=== PATIENT | male | born 1985 | race African-American/Black ===

== ENCOUNTER 2020-09-05 08:30 | Emergency (ER) | payer MEDICAID ==
[~2020-09-05] VITALS: Ht 182.9 cm; Wt 74.8 kg
--- NOTE | 2020-09-05 08:58 | Emergency Room Report ---
History of Present Illness General Chief Complaint: General Complaint Source: Patient Present Illness HPI 35-year-old male here with generalized weakness after starting a new medication. Patient was taking Biktarvy for HIV and has recently begun a clinical trial in which he is receiving injections of "some medication that starts with an R." Patient does not know the name of the medication. Has received several doses of medication and started this treatment 2 weeks ago. Patient denies headaches, vision changes, skin changes, rash, chest pain, palpitation, shortness of breath, back pain, abdominal pain, nausea, vomiting, dysuria. Has had some mild diarrhea. Allergies: Coded Allergies: No Known Allergies (Unverified , 09/05/20) COVID-19 Screening Contact w/high risk pt: No Experienced COVID-19 symptoms?: No COVID-19 Testing performed [employer]ER: No Review of Systems All Other Systems: negative except mentioned in HPI Physical Exam Vital Signs Date Time Temp Pulse Resp B/P (MAP) Pulse Ox O2 Delivery O2 Flow Rate FiO2 09/05/20 08:46 98.1 78 16 160/80 (106) 98 Room Air Sp02 EP Interpretation: reviewed, normal General Appearance: no apparent distress, alert, non-toxic Head: normocephalic, atraumatic Eyes: bilateral eye normal inspection, bilateral eye PERRL ENT: hearing grossly normal, normal pharynx, no angioedema, normal voice Neck: full range of motion, supple/symm/no masses Respiratory: chest non-tender, lungs clear, normal breath sounds, speaking full sentences Cardiovascular #1: regular rate, rhythm, no edema Cardiovascular #2: 2+ carotid (R), 2+ carotid (L), 2+ radial (R), 2+ radial (L), 2+ dorsalis pedis (R), 2+ dorsalis pedis (L) Gastrointestinal: normal bowel sounds, non tender, soft, non-distended, no guarding, no rebound Rectal: deferred Genitourinary: normal inspection, no CVA tenderness Musculoskeletal: back normal, normal range of motion, gait/station normal, non- tender Neurologic: alert, motor strength/tone normal, oriented x3, sensory intact, responsive, speech normal Psychiatric: judgement/insight normal, memory normal, mood/affect normal, no suicidal/homicidal ideation Lymphatic: no adenopathy Medical Decision Making Diagnostic Impression: Primary Impression: Encounter for generalized patient complaints Additional Impression: Elevated bilirubin ER Course Laboratory Tests Test 09/05/20 08:58 White Blood Count 4.1 K/UL (4.8-10.8) L Red Blood Count 5.04 M/UL (4.70-6.10) Hemoglobin 14.0 G/DL (14.2-18.0) L Hematocrit 42.7 % (42.0-52.0) Mean Corpuscular Volume 85 FL (80-99) Mean Corpuscular Hemoglobin 27.8 PG (27.0-31.0) Mean Corpuscular Hemoglobin Concent 32.8 G/DL (32.0-36.0) Red Cell Distribution Width 12.6 % (11.6-14.8) Platelet Count 252 K/UL (150-450) Mean Platelet Volume 7.1 FL (6.5-10.1) Neutrophils (%) (Auto) 43.5 % (45.0-75.0) L Lymphocytes (%) (Auto) 40.0 % (20.0-45.0) Monocytes (%) (Auto) 13.9 % (1.0-10.0) H Eosinophils (%) (Auto) 0.8 % (0.0-3.0) Basophils (%) (Auto) 1.8 % (0.0-2.0) Sodium Level 139 MMOL/L (136-145) Potassium Level 4.1 MMOL/L (3.5-5.1) Chloride Level 101 MMOL/L (98-107) Carbon Dioxide Level 27 MMOL/L (21-32) Anion Gap 11 mmol/L (5-15) Blood Urea Nitrogen 11 mg/dL (7-18) Creatinine 1.3 MG/DL (0.55-1.30) Estimated Glomerular Filtration Rate > 60 mL/min (>60) Glucose Level 106 MG/DL (74-106) Calcium Level 9.3 MG/DL (8.5-10.1) Total Bilirubin 2.4 MG/DL (0.2-1.0) H Direct Bilirubin 0.4 MG/DL (0.0-0.3) H Aspartate Amino Transferase (AST) 115 U/L (15-37) H Alanine Aminotransferase (ALT) 48 U/L (12-78) Alkaline Phosphatase 46 U/L (46-116) Total Protein 8.1 G/DL (6.4-8.2) Albumin 4.7 G/DL (3.4-5.0) Globulin 3.4 g/dL Albumin/Globulin Ratio 1.4 (1.0-2.7) 35-year-old male here with generalized weakness. Patient states however that "I am in a clinical trial for an injection for HIV." Patient also takes Biktarvy. CBC largely unremarkable but revealed a mildly decreased white blood cell count of 4.1. Patient also had a CMP that revealed an elevated total bilirubin of 2.4. Patient however had no symptoms of hyperbilirubinemia. He was told to follow-up with the physician who is giving him these medications. He was given a copy of these results. Was told to return with any worsening symptoms. Patient discharged in stable condition. Last Vital Signs Date Time Temp Pulse Resp B/P (MAP) Pulse Ox O2 Delivery O2 Flow Rate FiO2 09/05/20 08:51 78 16 Room Air 09/05/20 08:46 98.1 160/80 (106) 98 Referrals: KI WADDELL MD (PCP) Joel Cohen M.D. Sep 05, 2020 08:58
--- NOTE | 2020-09-05 09:20 | NUR ---
examied by dr roper labs drawn waiting for results
[2020-09-05 09:38] LABS: ANION GAP 11 mmol/L (5-15); BLOOD UREA NITROGEN 11 mg/dL (7-18); CALCIUM 9.3 MG/DL (8.5-10.1); CARBON DIOXIDE 27 MMOL/L (21-32); CHLORIDE 101 MMOL/L (98-107); CREATININE 1.3 MG/DL (0.55-1.30); POTASSIUM 4.1 MMOL/L (3.5-5.1); SODIUM 139 MMOL/L (136-145)
[2020-09-05 09:41] LABS: BASOPHILS % (AUTO) 1.8 % (0.0-2.0); EOSINOPHILS % (AUTO) 0.8 % (0.0-3.0); HEMATOCRIT 42.7 % (42.0-52.0); MEAN CORPUSCULAR VOLUME 85 FL (80-99); MONOCYTES % (AUTO) 13.9 % (1.0-10.0); NEUTROPHILS % (AUTO) 43.5 % (45.0-75.0); PLATELET COUNT 252 K/UL (150-450); RED BLOOD COUNT 5.04 M/UL (4.70-6.10); RED CELL DISTRIBUTION WIDTH 12.6 % (11.6-14.8); WHITE BLOOD COUNT 4.1 K/UL (4.8-10.8)
[2020-09-05 09:49] LABS: ALANINE AMINOTRANSFERASE 48 U/L (12-78); ALBUMIN 4.7 G/DL (3.4-5.0); ALBUMIN/GLOBULIN RATIO 1.4 (1.0-2.7); ALKALINE PHOSPHATASE 46 U/L (46-116); ASPARTATE AMINO TRANSFERASE 115 U/L (15-37); BILIRUBIN,TOTAL 2.4 MG/DL (0.2-1.0)
[2020-09-05 09:50] LABS: BILIRUBIN,DIRECT 0.4 MG/DL (0.0-0.3)
[2020-09-05 11:21] VITALS: BP 160/80
--- NOTE | 2020-09-05 11:22 | NUR ---
DISCHARGED HOME with instruction and rx follow up with pmd lab results given to patient
== END 2020-09-05 11:24 | disposition home or self-care (01) ==
LOC: EMR 08:51
DX: R53.1 Weakness (principal); B20 Human immunodeficiency virus [HIV] disease; Z79.899 Other long term (current) drug therapy; R19.7 Diarrhea, unspecified; E80.7 Disorder of bilirubin metabolism, unspecified
CPT/HCPCS: 36415; 80053; 82248; 85025; Z7502; 99283